=== PATIENT | female | born 1985 | race Caucasian/White ===

== ENCOUNTER 2022-08-19 20:47 | Emergency (ER) | payer MEDICAID, SELFPAY ==
[2022-08-19 20:57] VITALS: BP 148/89; PULSE 76; RESP 18; TEMP 36.8; O2SAT 98; BMI 36.2
--- NOTE | 2022-08-19 21:06 | ECG_ITS ---
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 Measurements Intervals Anderson Rate: 90 P: 71 NC: 167 QRS: 74 QRSD: 95 T: 9 QT: 356 QTc: 437 Interpretive Statements SINUS RHYTHM INCOMPLETE RIGHT BUNDLE BRANCH BLOCK [90+ ms QRS DURATION, TERMINAL R IN V1/V2, 40+ ms S IN I/aVL/V4/V5/V6] No previous ECG available for comparison Electronically Signed On 08-19-2022 22:33:09 CDT by Guerrero Pisano M.D. [email or web address]
--- NOTE | 2022-08-19 21:50 | XRR_ITS ---
PROCEDURE INFORMATION: Exam: XR Chest Exam date and time: 08/19/2022 9:57 PM Age: 36 years old Clinical indication: Chest pressure; Patient HX: C/O chest pain; Additional info: Cp TECHNIQUE: Imaging protocol: Radiologic exam of the chest. Views: 1 view. COMPARISON: No relevant prior studies available. FINDINGS: Lungs: No consolidative pulmonary infiltrates are noted. Pleural spaces: No pleural effusion. No pneumothorax. Heart/Mediastinum: No cardiomegaly. Bones/joints: Degenerative thoracic spine changes are noted. XR/XR chest 1V portable [id number] IMPRESSION: No acute abnormality demonstrated.
[2022-08-19 22:11] VITALS: BP 157/86; PULSE 75; O2SAT 97
--- NOTE | 2022-08-19 22:12 | PC.NURSE ---
Pt hooked up to continuous bedside cardiac monitoring.
[2022-08-19 22:15] VITALS: BP 157/86; PULSE 87; O2SAT 98
[2022-08-19 22:15] LABS: Basophils # 0.1 10^3/uL (0.0-0.1); Basophils % 0.6 %; Eosinophils # 0.4 10^3/uL (0.0-0.8); Eosinophils % 2.8 %; Hemoglobin 14.8 g/dL (11.5-15.3); Lymphocytes % 22.1 %; Mean Corpuscular HGB Conc 32.2 g/dL (30.0-36.0); Mean Corpuscular Hemoglobin 28.7 pg (28.0-34.0); Mean Corpuscular Volume 89.1 fl (81-99); Mean Platelet Volume 10.6 fL (7.4-10.4); Monocytes # 0.8 10^3/uL (0.2-0.9); Neutrophils # 9.38 10^3/uL (1.8-7.7); Neutrophils % 68.2 %; Nucleated Red Blood Cells % 0 %; Platelet Count 319 10^3/cmm (130-400); Red Blood Count 5.16 10^6/uL (4.1-5.3); Red Cell Distribution Width 12.4 % (12.1-15.1); White Blood Count 13.8 10^3/uL (4.0-10.0)
[2022-08-19 22:30] VITALS: BP 136/80; PULSE 82; O2SAT 98
[2022-08-19 22:30] LABS: D Dimer 0.66 ug/mIFEU (0-0.59)
[2022-08-19 22:36] LABS: Alanine Aminotransferase 37 U/L (0-33); Albumin Level 4.5 g/dL (3.5-5.2); Alkaline Phosphatase 57 U/L (35-105); Anion Gap 17.8 (5-19); Aspartate Amino Transferase 20 U/L (0-32); Blood Urea Nitrogen 10 mg/dL (6-20); Calcium 9.3 mg/dL (8.5-10.5); Carbon Dioxide 24 mmol/L (22-29); Chloride 102 mmol/L (98-107); Globulin 3.7 g/dL (1.3-4.6); Glomerular Filtration Rate 113.8 mL/min (90-130); Glucose 115 mg/dL (65-115); Lipase 22 U/L (13-60); Osmolality Calculated 290 mOsm/kg (285-295); Potassium 3.8 mmol/L (3.5-5.1); Sodium 140 mmol/L (136-145); Total Bilirubin 0.5 mg/dL (0.15-1.2); Total Protein 8.2 g/dL (6.6-8.7)
[2022-08-19 22:37] LABS: Troponin(5th) Baseline 6 ng/L (0-10)
--- NOTE | 2022-08-19 22:49 | CTR_ITS ---
PROCEDURE INFORMATION: Exam: CTA Chest With Contrast Exam date and time: 08/19/2022 10:56 PM Age: 36 years old Clinical indication: Pain and abnormal findings; Abnormal diagnostic tests; Elevated d-dimer; Chest pressure; Patient HX: C/O chest pain. D dimer of 0.66; Additional info: Cp TECHNIQUE: Imaging protocol: Computed tomographic angiography of the chest with contrast. Exam focused on the arteries. 3D rendering (Not supervised by radiologist): MIP and/or 3D reconstructed images were created by the technologist. Radiation optimization: All CT scans at this facility use at least one of these dose optimization techniques: automated exposure control; mA and/or kV adjustment per patient size (includes targeted exams where dose is matched to clinical indication); or iterative reconstruction. Contrast material: OMNI 350; Contrast volume: 55 ml; Contrast route: INTRAVENOUS (IV); REPORTING DATA: Count of CT and Cardiac NM exams in prior 12 months: This patient has received 0 known CTs and 0 known cardiac nuclear medicine studies in the 12 months prior to the current study. COMPARISON: CR (CHEST, ) 08/19/2022 9:57 PM RADIATION DOSE METRICS: Total DLP (mGy-cm): 369.26 FINDINGS: Limitations: Pulsation artifact incidentally noted in the area of the ascending aorta and main pulmonary artery. Pulmonary arteries: Pulmonary arteries are normal in size. No filling defects are demonstrated. No evidence of pulmonary embolism. Aorta: No aortic aneurysm or aortic dissection. Lungs: No consolidative pulmonary infiltrate noted. Pleural spaces: No pleural effusion or pneumothorax noted. Heart: No cardiomegaly. No pericardial effusion. Coronary arteries: No coronary arterial calcifications are noted. Lymph nodes: Unremarkable. No enlarged lymph nodes. Bones/joints: No acute fracture or other acute osseous abnormality. Soft tissues: The soft tissues are unremarkable as demonstrated. Subcutaneous cyst versus soft tissue nodule measuring 2.2 cm in the anterior chest wall, series 7, image 150. CT/CT angio chest PE protcl [id number] IMPRESSION: 1. Pulsation artifact incidentally noted in the area of the ascending aorta and main pulmonary artery. 2. No evidence of pulmonary embolism. 3. No consolidative pulmonary infiltrate noted. 4. Subcutaneous cyst versus soft tissue nodule measuring 2.2 cm in the anterior chest wall, series 7, image 150.
--- NOTE | 2022-08-19 22:51 | W.ED.CHESTPA ---
Documented by User: Rachna Enciso MD 08/19/22 22:54 HPI - Chest Pain General: Chief Complaint: Chest Pain Stated Complaint: CP Time Seen by Provider: 08/19/22 21:49 Source: patient Mode of arrival: ambulatory Limitations: no limitations History of Present Illness: 36-year-old female states she been having chest pain since 7 PM. States its been a sharp pain in the middle of her chest states it feels like someone's been punching her. She rates the pain a 7 out of 10 currently states been constant since 7 she denies any worsening proving factors denies any cough or fever. Associated symptoms: Deny abdominal pain, dyspnea, fever(s), nausea or vomiting Review of Systems Const: Denies: fever(s), chills, body aches or change in appetite ENMT: Denies: throat pain or dental pain Card: Reports: chest pain Resp: Denies: dyspnea GI: Denies: abdominal pain, nausea, vomiting or diarrhea : Denies: dysuria Musc: Denies: neck pain or back pain Skin/Breast: Denies: rash Neuro: Denies: headache(s) Psych: Denies: depression Mac/Lymph: Denies: easy bruising All/Imm: Denies: urticaria [facility] Female Reproductive History: Date of last menstrual period: 08/19/22 Physical Exam Const: COMMON NORMALS: no acute distress, patient oriented x3 and healthy appearing HENMT: COMMON NORMALS: normocephalic and atraumatic HEAD & SCALP: normocephalic and atraumatic Eye: COMMON NORMALS: Equal, round and reactive pupils present and EOMs intact bilaterally PUPIL: Yes Equal, round and reactive pupils present Neck/C-Spine: COMMON NORMALS: full ROM and supple Chest: COMMONS NORMALS: normal inspection of the chest and normal palpation of entire chest wall Resp: COMMON NORMALS: normal respiratory effort, No retractions, No use of accessory muscles and clear to auscultation bilaterally AUSCULTATION: clear to auscultation bilaterally Cardio: COMMON NORMALS: regular rate, regular rhythm and No murmurs present (Cardio) RATE: regular rate RHYTHM: regular rhythm GI: COMMON NORMALS: Normal to inspection, nondistended, normoactive bowel sounds present, Soft to palpation, non-tender and no masses PALPATION: Yes Soft to palpation Extremity: COMMON NORMALS: normal to inspection and full ROM Neuro: COMMON NORMALS: patient oriented x3, moves all extremities and no focal motor deficits Psych: COMMON NORMALS: mental status grossly normal, Normal thought process present and cooperative THOUGHT PROCESS: Normal thought process present Skin: COMMON NORMALS: no rashes or lesions noted and no wounds GENERAL SKIN EXAM: no rashes or lesions noted Course Vital Signs: Vital signs: Vital Signs Temperature 98.2 F 08/19/22 20:57 Pulse Rate 65 08/20/22 00:34 Respiratory Rate 78 H 08/20/22 00:27 Blood Pressure 135/70 08/20/22 00:34 Pulse Oximetry 98 08/20/22 00:34 Oxygen Delivery Me thod Room Air 08/20/22 00:27 MDM - Chest Pain Lab Data 08/19/22 22:00 08/19/22 22:00 Radiology Impressions Chest X-Ray 08/19/22 21:50 IMPRESSION: No acute abnormality demonstrated. Chest CTA 08/19/22 22:49 IMPRESSION: 1. Pulsation artifact incidentally noted in the area of the ascending aorta and main pulmonary artery. 2. No evidence of pulmonary embolism. 3. No consolidative pulmonary infiltrate noted. 4. Subcutaneous cyst versus soft tissue nodule measuring 2.2 cm in the anterior chest wall, series 7, image 150. Laboratory Results WBC 13.8 10^3/uL (4.0-10.0) H 08/19/22 22:00 RBC 5.16 10^6/uL (4.1-5.3) 08/19/22 22:00 Hgb 14.8 g/dL (11.5-15.3) 08/19/22 22:00 Hct 46.0 % (37.0-47.0) 08/19/22 22:00 MCV 89.1 fl (81-99) 08/19/22 22:00 MCH 28.7 pg (28.0-34.0) 08/19/22 22:00 MCHC 32.2 g/dL (30.0-36.0) 08/19/22 22:00 RDW 12.4 % (12.1-15.1) 08/19/22 22:00 Plt Count 319 10^3/cmm (130-400) 08/19/22 22:00 MPV 10.6 fL (7.4-10.4) H 08/19/22 22:00 Neut % (Auto) 68.2 % 08/19/22 22:00 Lymph % (Auto) 22.1 % 08/19/22 22:00 Gosper % (Auto) 6.0 % 08/19/22 22:00 Eos % (Auto) 2.8 % 08/19/22 22:00 Baso % (Auto) 0.6 % 08/19/22 22:00 Neut # (Auto) 9.38 10^3/uL (1.8-7.7) H 08/19/22 22:00 Lymph # (Auto) 3.0 10^3/uL (0.8-4.8) 08/19/22 22:00 Gosper # (Auto) 0.8 10^3/uL (0.2-0.9) 08/19/22 22:00 Eos # (Auto) 0.4 10^3/uL (0.0-0.8) 08/19/22 22:00 Baso # (Auto) 0.1 10^3/uL (0.0-0.1) 08/19/22 22:00 Nucleated RBC % (auto) 0 % 08/19/22 22:00 Nucleated RBCs # 0.0 /100WBC 08/19/22 22:00 D-Dimer 0.66 ug/mIFEU (0-0.59) H 08/19/22 22:00 Sodium 140 mmol/L (136-145) 08/19/22 22:00 Potassium 3.8 mmol/L (3.5-5.1) 08/19/22 22:00 Chloride 102 mmol/L (98-107) 08/19/22 22:00 Carbon Dioxide 24 mmol/L (22-29) 08/19/22 22:00 Anion Gap 17.8 (5-19) 08/19/22 22:00 BUN 10 mg/dL (6-20) 08/19/22 22:00 Creatinine 0.6 mg/dL (0.5-0.9) 08/19/22 22:00 GFR Calculation 113.8 mL/min (90-130) 08/19/22 22:00 Glucose 115 mg/dL (65-115) 08/19/22 22:00 Calculated Osmolality 290 mOsm/kg (285-295) 08/19/22 22:00 Calcium 9.3 mg/dL (8.5-10.5) 08/19/22 22:00 Total Bilirubin 0.5 mg/dL (0.15-1.2) 08/19/22 22:00 AST 20 U/L (0-32) 08/19/22 22:00 ALT 37 U/L (0-33) H 08/19/22 22:00 Alkaline Phosphatase 57 U/L (35-105) 08/19/22 22:00 Troponin T Baseline 6 ng/L (0-10) 08/19/22 22:00 Troponin T 120 Minute 6.00 ng/L (0-10) 08/19/22 23:50 Delta Troponin T 0 ABS# (0-10) 08/19/22 23:50 Total Protein 8.2 g/dL (6.6-8.7) 08/19/22 22:00 Albumin 4.5 g/dL (3.5-5.2) 08/19/22 22:00 Globulin 3.7 g/dL (1.3-4.6) 08/19/22 22:00 Lipase 22 U/L (13-60) 08/19/22 22:00 Discharge Plan Discharge Patient Disposition: Home Clinical Impression: Chest pain Condition: Stable Discharge Orders: Discharge ED (Routine); Ordered 08/20/22 Ordered By: Matti Griffin Patient Instructions: Chest Pain (ED) Activity Restrictions/Additional Instructions: Follow a liquid and soft food diet for the next 24 hours, which may help. Return for worsening pain, vomiting liquids, fever, shortness of breath, other concerning symptoms. Follow-up with your doctor this coming week. 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 Enciso at shift change. This lady had chest discomfort, in particular after swallowing a soda. Pain was still significant on arrival. Improved now after morphine and Zofran. Her white blood cell count was mildly elevated at 14. CBC and BMP are otherwise normal. Liver enzymes are normal. EKG did not show acute ST changes. Chest x-ray was normal. D-dimer was minimally elevated at 0.66. CTA of the chest is negative for dissection, pulmonary embolism, or infiltrate. No evidence of esophageal rent either. With improvement in her pain pump, she will be allowed home. Lab Data 08/19/22 22:00 08/19/22 22:00 Radiology Impressions Chest X-Ray 08/19/22 21:50 IMPRESSION: No acute abnormality demonstrated. Chest CTA 08/19/22 22:49 IMPRESSION: 1. Pulsation artifact incidentally noted in the area of the ascending aorta and main pulmonary artery. 2. No evidence of pulmonary embolism. 3. No consolidative pulmonary infiltrate noted. 4. Subcutaneous cyst versus soft tissue nodule measuring 2.2 cm in the anterior chest wall, series 7, image 150. Laboratory Results WBC 13.8 10^3/uL (4.0-10.0) H 08/19/22 22:00 RBC 5.16 10^6/uL (4.1-5.3) 08/19/22 22:00 Hgb 14.8 g/dL (11.5-15.3) 08/19/22 22:00 Hct 46.0 % (37.0-47.0) 08/19/22 22:00 MCV 89.1 fl (81-99) 08/19/22 22:00 MCH 28.7 pg (28.0-34.0) 08/19/22 22:00 MCHC 32.2 g/dL (30.0-36.0) 08/19/22 22:00 RDW 12.4 % (12.1-15.1) 08/19/22 22:00 Plt Count 319 10^3/cmm (130-400) 08/19/22 22:00 MPV 10.6 fL (7.4-10.4) H 08/19/22 22:00 Neut % (Auto) 68.2 % 08/19/22 22:00 Lymph % (Auto) 22.1 % 08/19/22 22:00 Gosper % (Auto) 6.0 % 08/19/22 22:00 Eos % (Auto) 2.8 % 08/19/22 22:00 Baso % (Auto) 0.6 % 08/19/22 22:00 Neut # (Auto) 9.38 10^3/uL (1.8-7.7) H 08/19/22 22:00 Lymph # (Auto) 3.0 10^3/uL (0.8-4.8) 08/19/22 22:00 Gosper # (Auto) 0.8 10^3/uL (0.2-0.9) 08/19/22 22:00 Eos # (Auto) 0.4 10^3/uL (0.0-0.8) 08/19/22 22:00 Baso # (Auto) 0.1 10^3/uL (0.0-0.1) 08/19/22 22:00 Nucleated RBC % (auto) 0 % 08/19/22 22:00 Nucleated RBCs # 0.0 /100WBC 08/19/22 22:00 D-Dimer 0.66 ug/mIFEU (0-0.59) H 08/19/22 22:00 Sodium 140 mmol/L (136-145) 08/19/22 22:00 Potassium 3.8 mmol/L (3.5-5.1) 08/19/22 22:00 Chloride 102 mmol/L (98-107) 08/19/22 22:00 Carbon Dioxide 24 mmol/L (22-29) 08/19/22 22:00 Anion Gap 17.8 (5-19) 08/19/22 22:00 BUN 10 mg/dL (6-20) 08/19/22 22:00 Creatinine 0.6 mg/dL (0.5-0.9) 08/19/22 22:00 GFR Calculation 113.8 mL/min (90-130) 08/19/22 22:00 Glucose 115 mg/dL (65-115) 08/19/22 22:00 Calculated Osmolality 290 mOsm/kg (285-295) 08/19/22 22:00 Calcium 9.3 mg/dL (8.5-10.5) 08/19/22 22:00 Total Bilirubin 0.5 mg/dL (0.15-1.2) 08/19/22 22:00 AST 20 U/L (0-32) 08/19/22 22:00 ALT 37 U/L (0-33) H 08/19/22 22:00 Alkaline Phosphatase 57 U/L (35-105) 08/19/22 22:00 Troponin T Baseline 6 ng/L (0-10) 08/19/22 22:00 Troponin T 120 Minute 6.00 ng/L (0-10) 08/19/22 23:50 Delta Troponin T 0 ABS# (0-10) 08/19/22 23:50 Total Protein 8.2 g/dL (6.6-8.7) 08/19/22 22:00 Albumin 4.5 g/dL (3.5-5.2) 08/19/22 22:00 Globulin 3.7 g/dL (1.3-4.6) 08/19/22 22:00 Lipase 22 U/L (13-60) 08/19/22 22:00 Discharge Plan Discharge Patient Disposition: Home Clinical Impression: Chest pain Condition: Stable Discharge Orders: Discharge ED (Routine); Ordered 08/20/22 Ordered By: Matti Griffin Patient Instructions: Chest Pain (ED) Activity Restrictions/Additional Instructions: Follow a liquid and soft food diet for the next 24 hours, which may help. Return for worsening pain, vomiting liquids, fever, shortness of breath, other concerning symptoms. Follow-up with your doctor this coming week. Coding Level of Care Code ED Printing Supplies Sales Representative for Srinivasa Pemberton
[2022-08-19] MEDS: iohexol 350 mg/mL 500 mL Btl (per mL) IV (23:05)
[2022-08-19 23:31] VITALS: BP 136/80; PULSE 71; O2SAT 97
[2022-08-20 00:15] VITALS: RESP 18
[2022-08-20] MEDS: morphine 4 mg/mL SDV 1 mL IVP (00:15)
[2022-08-20] MEDS: ondansetron 2 mg/ML SDV 2 mL 4 MG IVP (00:18)
[2022-08-20 00:27] VITALS: BP 128/75; RESP 78; O2SAT 97
[2022-08-20 00:34] VITALS: BP 135/70; PULSE 65; O2SAT 98
[2022-08-20 00:53] LABS: Troponin 5 2HR Delta 0 ABS# (0-10)
--- NOTE | 2022-08-24 13:54 | DCPLANNER ---
manager zone called patient due to no primary care physician - patient does not have a primary care, but is going to call [facility] [place] to see if she can get in with who her sees.
== END 2022-08-20 00:36 | disposition home or self-care (01) ==
PROVIDERS: Emergency Medicine; Emergency Provider Emergency Medicine
DX: R07.89 Other chest pain (principal)
CPT/HCPCS: 36415; 71045; 71275; 80053; 83690; 84484; 85025; 85378; 93005; 96374; 96375; 99285; J2270; J2405; Q9967

== ENCOUNTER 2025-02-04 06:00 | Outpatient (CLI) | payer MEDICAID, SELFPAY ==
--- NOTE | 2025-02-04 | US_ITS ---
WS: [id number] Ultrasound chest, limited. There is a palpable mass along the anterior chest. No additional labral association. This may be a midline mass. No lateralization. There is a solid mass without increased vascularity in the mid anterior chest measuring 2.3 x 1.6 x 3.5 cm. No increased vascularity. This is well- circumscribed mass. By history this mass has been present for 13 years. There was a mass previously described on chest CT from 08/19/2022 which may correspond to the mass seen by ultrasound. Largest diameter was 2.1 cm on the prior study. US/US chest [id number] IMPRESSION: 1. Solid well-circumscribed mass along the mid anterior chest. This mass was al so present on a chest CT from 08/19/2022 and the maximum diameter is increased fr om 2.1 to 3.5 cm. Favor this is a benign mass. Due to increase in size this can be evaluated for surgical removal. This may be a small epidermoid or sebaceous cyst. Not typical for lipoma.
== END 2025-02-04 06:01 | disposition home or self-care (01) ==
LOC: RADOUTREAD 02-05 11:27
PROVIDERS: Visit Provider Physician Assistant
DX: R22.2 Localized swelling, mass and lump, trunk (principal)
CPT/HCPCS: 76604

== ENCOUNTER 2025-02-05 13:09 | Outpatient (CLI) | payer MEDICAID, SELFPAY ==
--- NOTE | 2025-02-04 13:49 | US_ITS ---
WS: [id number] Ultrasound chest, limited. There is a palpable mass along the anterior chest. No additional labral association. This may be a midline mass. No lateralization. There is a solid mass without increased vascularity in the mid anterior chest measuring 2.3 x 1.6 x 3.5 cm. No increased vascularity. This is well- circumscribed mass. By history this mass has been present for 13 years. There was a mass previously described on chest CT from 08/19/2022 which may correspond to the mass seen by ultrasound. Largest diameter was 2.1 cm on the prior study. US/US chest [id number] IMPRESSION: 1. Solid well-circumscribed mass along the mid anterior chest. This mass was al so present on a chest CT from 08/19/2022 and the maximum diameter is increased fr om 2.1 to 3.5 cm. Favor this is a benign mass. Due to increase in size this can be evaluated for surgical removal. This may be a small epidermoid or sebaceous cyst. Not typical for lipoma.
--- NOTE | 2025-02-05 13:16 | MM_ITS ---
WS: [id number] BILATERAL SCREENING DIGITAL TOMOSYNTHESIS MAMMOGRAM WITH CAD HISTORY: SCREENING COMPARISON: None available. Bilateral CC and MLO views with tomosynthesis and synthetic mammography submitted. Computer aided detection analyzed. Breast composition: The breasts are almost entirely fatty. No suspicious masses, microcalcifications or architectural distortion. Benign scattered calcifications. MM/MM scr BI tomosynthesis [id number] IMPRESSION: BI-RADS: 2 - Benign. FOLLOW UP: 1 Year Follow-up
== END 2025-02-05 13:10 | disposition home or self-care (01) ==
PROVIDERS: PCP Physician Assistant; Visit Provider Physician Assistant
DX: Z12.31 Encounter for screening mammogram for malignant neoplasm of breast (principal); R92.1 Mammographic calcification found on diagnostic imaging of breast; R93.89 Abnormal findings on diagnostic imaging of other specified body structures
CPT/HCPCS: 77063; 77067